=== PATIENT | male | born 1970 ===

== ENCOUNTER 2020-12-28 08:23 | Outpatient (REF) | payer OTHER, SELFPAY ==
--- NOTE | 2020-12-28 14:40 | MHC.AU.ANR ---
Adult Audiological Evaluation Date of Visit: 12/28/20 Reason for Appointment: Audiological re-evaluation to monitor the status of Mr. Soto's hearing loss. He was previously seen here in July 2019, at which time he was diagnosed with a bilateral sensorineural hearing loss and hearing aids were recommended. He wanted time to think about hearing aids before moving forward, but then was not able to return due to the COVID-19 pandemic. He states that he is now interested in pursuing hearing aids. He denies any significant changes to his hearing or medical history. Mr. Soto notes that he often has to ask for repetition, his family notices he doesn't hear well, and he has to turn the TV volume up. Does patient feel they have a hearing loss?: Yes If Yes, Which Ear?: Both Ears Has hearing been tested previously?: Yes Previous Hearing Test Results: [facility] [place], 07/31/2019- Normal hearing sloping to a mild to moderately severe sensorineural hearing loss bilaterally. 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 Otoscopy: Right Ear: Unremarkable Left Ear: Unremarkable Tympanometry: Tympanometry performed due to: To assess integrity of the middle ear system Right Ear: Normal Middle Ear System (Type A) Left Ear: Normal Middle Ear System (Type A) Hearing Evaluation: Transducer(s) Used: Insert Earphones, Bone Conduction Method: Conventional Audiometry Stimuli Used: Pure Tones Right Ear: Description of Hearing: Normal hearing from 250-500 Hz, sloping to a mild to moderately severe sensorineural hearing loss from 4686-8630 Hz. Left Ear: Description of Hearing: Normal hearing from 250-500 Hz, sloping to a mild to moderately severe sensorineural hearing loss from 2829-6986 Hz. Speech Recognition Threshold (SRT): Method Used: Recorded Lists Stimuli Used: Spondee Words Right Ear: 35 dBHL Left Ear: 35 dBHL Word Discrimination: Method: Recorded Lists Word Lists Used: Lista Bisil?bica (Tamazight) Right Ear: 92% at 75 dBHL Left Ear: 96% at 75 dBHL Comparison: Compared to the most recent evaluation: Hearing is stable. Recommendations: Audiological re-evaluation in one year. Trial with amplification is recommended. Medical clearance from a physician is required before fitting. See Hearing Aid Evaluation report for more information. Discussed hearing aid options. Recommend Phonak Audeo ERICK style hearing aids. Hearing aids will be ordered once medical clearance is received. Diagnosis: Primary Diagnosis: H90.3 Bilateral Sensorineural Hearing Loss Services Performed: Services Performed: Comprehensive Audiological Evaluation (CPT 04245) Tympanometry (CPT 85397) Signature: Provider: Hakeem Bautista, BALDO-A
--- NOTE | 2020-12-28 14:44 | MHC.AU.HAS ---
Hearing Aid Evaluation Date of Visit: 12/28/20 Historical Information: Description of Hearing: Normal sloping to a mild to moderately severe sensorineural hearing loss. Summary: Based on patient's perceived communication difficulties and type and degree of hearing loss, binaural amplification is recommended to facilitate improved communication. Options were discussed. Based on his hearing, ERICK style hearing aids with domes are recommended. He is agreeable to this option. He would prefer rechargeable hearing aids for ease of use. Hearing Aid Prescription: Based on the individual?s shared listening needs, communication environments, dexterity, desire for connectivity, and personal preferences, the following prescription for amplification has been made: Right ear: Networking Technology Instructor: Phonak Model: Audeo P70-R Battery Size: Rechargeable Color: P8- Black Upholstery Covers Inspector: 0 M Type of Dome: Open Left ear: Left ear prescription to be same as Right Hearing Aid above: Networking Technology Instructor: Phonak Model: Audeo P70-R Battery Size: Rechargeable Upholstery Covers Inspector: 0 M Type of Dome: Open Plan of Care: Medical Clearance to be requested from PCP/ENT. Hearing Instrument Fitting to be scheduled when materials arrive. Hearing aids will be ordered once medical clearance is received. Primary Diagnosis: H90.3 Bilateral Sensorineural Hearing Loss Signature: Provider: Hakeem Bautista, BALDO-A
--- NOTE | 2020-12-28 14:45 | MHC.AU.MED ---
Medical Clearance for Hearing Instrumentation Date: 12/29/20 Patient Name: Hubert Soto Date of : 1970 Referring Provider: Carolee Chatterjee MD; Jesse Webb PA-C We have seen your patient on 12/29/20 and have determined that they are a candidate for amplification (See accompanying report). Specifically, they would benefit from: Hearing aid use in both ears There is a statute that addresses Medical Evaluation Requirements prior to fitting a patient with a hearing aid. According to [place] statute 265 CMR:6.03(1), (a) General. Except as provided in 265 CMR 6.03(1)(b), a credit control clerk shall not sell a hearing aid unless the prospective user has presented to the credit control clerk a written statement signed by a licensed physician that states that the patient's hearing loss has been medically evaluated and the patient may be considered a candidate for a hearing aid. The medical evaluation must have taken place within the preceding six months. Please note: Due to the [place] Statute referenced above, we cannot accept a signature other than that of a licensed physician. STENCIL MAKER and PA signatures cannot be accepted. I am in agreement with the above recommendation. There is no medical contraindication for hearing instrumentation. Physician Signature Date Physician Name (Printed)
== END 2020-12-28 08:24 | disposition home or self-care (01) ==
LOC: HO.SH 08:23
PROVIDERS: Visit Provider Physician Assistant Medical
DX: Z46.1 Encounter for fitting and adjustment of hearing aid (principal); H90.3 Sensorineural hearing loss, bilateral
CPT/HCPCS: 92557; 92567; 92591

== ENCOUNTER 2021-03-27 10:32 | Outpatient (REF) | payer OTHER, SELFPAY | END 2021-03-27 10:33 | disposition home or self-care (01) | LOC: HO.HAP 10:32 | PROVIDERS: Visit Provider Internal Medicine | DX: Z46.1 Encounter for fitting and adjustment of hearing aid (principal); H90.3 Sensorineural hearing loss, bilateral | CPT/HCPCS: V5011; V5020; V5160; V5261 ==

== ENCOUNTER 2021-04-17 10:28 | Outpatient (REF) | payer OTHER, SELFPAY | END 2021-04-17 10:29 | disposition home or self-care (01) | LOC: HO.HAP 10:28 | PROVIDERS: Visit Provider Internal Medicine | DX: Z13.89 Encounter for screening for other disorder (principal) ==

== ENCOUNTER 2021-12-29 12:43 | Outpatient (REF) | payer OTHER, SELFPAY | END 2021-12-29 12:44 | disposition home or self-care (01) | LOC: HO.HAP 12:43 | PROVIDERS: Visit Provider Internal Medicine | DX: Z46.1 Encounter for fitting and adjustment of hearing aid (principal) | CPT/HCPCS: V5267 ==

== ENCOUNTER 2024-01-31 10:20 | Outpatient (REF) | payer OTHER, SELFPAY ==
--- NOTE | 2024-01-31 12:22 | MHC.AU.HA3 ---
Hearing Instrument Follow-Up- Binaural Date of Visit: 01/31/24 Right Ear: Keith, Model, Color, Serial Number: [id number] [employer] Mechanic Repair Warranty: 05/29/2026 [employer] Mechanic Loss and Damage Warranty: 05/29/2026 [facility] Service Plan: 03/27/2022 Battery Size: Rechargeable Casing Material Weigher/Slim Tube: 0 M Earmold/Dome/CShell/SlimTip:sm open Type of Wax Guard: Cerushield Dispensed By: [facility] Date of Fittin03/27/2021 Left Ear: Keith, Model, Color, Serial Number: [id number] [employer] Mechanic Repair Warranty: 05/29/2026 [employer] Mechanic Loss and Damage Warranty: 05/29/2026 [facility] Service Plan: 03/27/2022 Battery Size: Rechargeable Casing Material Weigher/Slim Tube: 0 M Earmold/Dome/CShell/SlimTip: sm open Type of Wax Guard: Cerushield Dispensed By: [facility] Date of Fittin03/27/2021 Follow-Up Summary: In person deicer tester present. Hubert reports the left aid is not lasting a full day as it once did. Also notes aids are disconnected from his phone. Recommended sending left to chief deputy clerk/bailiff for battery drain. Hubert would like to send the right as well for a check. We will send the left out, when he comes to machine operator hop picker the left he can drop off the right, when the right returns we will schedule an appointment to make sure both aids are functioning with his phone. Recommendations: Recommendations: Patient will be contacted when materials have arrived. Diagnosis Code(s): Primary Diagnosis: H90.3 Bilateral Sensorineural Hearing Loss Signature: Provider: Efra Roy, CCC-A
== END 2024-01-31 10:21 | disposition home or self-care (01) ==
LOC: HO.HAP 10:20
PROVIDERS: Visit Provider Internal Medicine
DX: Z46.1 Encounter for fitting and adjustment of hearing aid (principal); H90.3 Sensorineural hearing loss, bilateral
CPT/HCPCS: 92593

== ENCOUNTER 2024-02-19 11:26 | Outpatient (REF) | payer OTHER, SELFPAY | END 2024-02-19 11:27 | disposition home or self-care (01) | LOC: HO.HAP 11:26 | PROVIDERS: Visit Provider Internal Medicine | DX: Z13.89 Encounter for screening for other disorder (principal) ==

== ENCOUNTER 2024-02-19 11:28 | Outpatient (REF) | payer OTHER, SELFPAY | END 2024-02-19 11:29 | disposition home or self-care (01) | LOC: HO.HAP 11:28 | PROVIDERS: Visit Provider Internal Medicine | DX: Z13.89 Encounter for screening for other disorder (principal) ==

== ENCOUNTER 2024-03-13 10:32 | Outpatient (REF) | payer OTHER, SELFPAY ==
--- NOTE | 2024-03-13 13:21 | MHC.AU.HA3 ---
Hearing Instrument Follow-Up- Binaural Date of Visit: 03/13/24 Right Ear: Keith, Model, Color, Serial Number: [id number] Phonak Audeo P70 Velvet Black [employer] Pressman Repair Warranty: 05/29/2026 [employer] Loss and Damage Warranty: 05/29/2026 [facility] Service Plan: 03/27/2022 Battery Size: Rechargeable Food Service Kitchen Supervisor/Slim Tube: 0 M Earmold/Dome/CShell/SlimTip:sm open Type of Wax Guard: Cerushield Dispensed By: [facility] Date of Fittin03/27/2021 Left Ear: Keith, Model, Color, Serial Number: [id number] Phonak Audeo P70 Velvet Black [employer] Pressman Repair Warranty: 05/29/2026 [employer] Loss and Damage Warranty: 05/29/2026 [facility] Service Plan: 03/27/2022 Battery Size: Rechargeable Food Service Kitchen Supervisor/Slim Tube: 0 M Earmold/Dome/CShell/SlimTip: sm open Type of Wax Guard: Cerushield Dispensed By: [facility] Date of Fittin03/27/2021 Follow-Up Summary: Here to waste picker right aid. Hooked aids up together to [employer] to ensure binaural functionality. Pt had been having problems with phone connection previously. Deleted all ROMERO pairings in phone and elliott. Re-paired all. Tested connection. All set. Recommendations: Recommendations: Hearing instrument follow-up or maintenance as needed. Diagnosis Code(s): Primary Diagnosis: H90.3 Bilateral Sensorineural Hearing Loss Signature: Provider: Efra Roy, [facility]
== END 2024-03-13 10:33 | disposition home or self-care (01) ==
LOC: HO.HAP 10:32
PROVIDERS: Visit Provider Internal Medicine
DX: Z46.1 Encounter for fitting and adjustment of hearing aid (principal); H90.3 Sensorineural hearing loss, bilateral
CPT/HCPCS: 92593